=== PATIENT | female | born 1995 | race Caucasian/White ===

== ENCOUNTER → 2016-06-23 | Outpatient (CLI) | payer MEDICAID, OTHER ==
[~2016-06-23] MED LIST: BCP; DOCU-143 PO; FERR-84 PO; IBUP-1773 PO; OXYC-197 PO; PROP80CA4 PO
== END ==
LOC: LAB 08:57
PROVIDERS: ATTEND Obstetrics & Gynecology
DX: Z34.82 Encounter for supervision of other normal pregnancy, second trimester (principal); Z36 Encounter for antenatal screening of mother
CPT/HCPCS: 36415; 82951; 82952

== ENCOUNTER 2016-09-16 15:13 | Outpatient (CLI) | payer OTHER, MEDICAID ==
[~2016-09-16] VITALS: Ht 160 cm; Wt 65.8 kg
[~2016-09-16 15:13] MED LIST changes: -DOCU-143 PO; -FERR-84 PO; -IBUP-1773 PO; -OXYC-197 PO
[2016-09-16 15:18] VITALS: BP 115/69
[2016-09-16] MEDS ORDERED: FERR-84 PO (15:39)
[2016-09-16 15:42] LABS: BILIRUBIN,URINE NEGATIVE (NEGATIVE); KETONES,URINE 3+ (NEGATIVE); LEUKOCYTE ESTERASE ,URINE NEGATIVE (NEGATIVE); NITRITE,URINE NEGATIVE (NEGATIVE); PH,URINE 6 (5-9); PROTEIN,URINE NEGATIVE (NEGATIVE); UROBILINOGEN,URINE NORMAL (NORMAL)
--- NOTE | 2016-09-17 10:38 | Physician Query-Final Dx ---
MAYRA RAMSEY 09/17/16 1038: Clinic Account Progress/Dx Physician Query: Please give diagnosis Date of Service Sep 16, 2016 at 15:13 FRACISCO RUBIN MD 09/17/16 1502: Clinic Account Progress/Dx DIAGNOSIS: Diagnosis Contractions in third trimester, false labor MAYRA RAMSEY Sep 17, 2016 10:38 FRACISCO RUBIN MD Sep 17, 2016 15:02
== END 2016-09-16 16:35 | disposition home or self-care (01) ==
LOC: LDRP 15:13 → WSo 15:13
PROVIDERS: ATTEND Obstetrics & Gynecology
DX: O47.1 False labor at or after 37 completed weeks of gestation (principal); Z3A.39 39 weeks gestation of pregnancy
CPT/HCPCS: 81000; 99213

== ENCOUNTER 2016-09-17 20:00 | Inpatient (IN) | payer OTHER, MEDICAID ==
[~2016-09-17] VITALS: Ht 160 cm; Wt 66.7 kg
[~2016-09-17 20:00] MED LIST changes: +FERR-84 PO
[2016-09-17 22:15] VITALS: BP 108/55
[2016-09-17] MEDS ORDERED: LACTATED RINGERS 1,000 ML IV ONE (22:19)
[2016-09-17] MEDS ORDERED: MINERAL OIL CONCENTRATE 99.9% 15 ML UDC TOP PRN (22:30)
[2016-09-17] MEDS: LACTATED RINGERS 1,000 ML IV SCH (22:35)
[2016-09-17 22:54] LABS: BASOPHILS % (AUTO) 0 % (0-10); EOSINOPHILS # (AUTO) 0.1 10^3/uL (0.0-0.3); EOSINOPHILS % (AUTO) 1 % (0-10); LYMPHOCYTES # (AUTO) 1.3 X 10^3 (1.0-4.0); LYMPHOCYTES % (AUTO) 17 % (12-44); MEAN CORPUSCULAR HEMOGLOBIN 32 PG (25-34); MEAN CORPUSCULAR HGB CONC 34 G/DL (32-36); MEAN CORPUSCULAR VOLUME 94 FL (80-99); MEAN PLATELET VOLUME 11.5 FL (7.4-10.4); MONOCYTES # (AUTO) 0.9 X 10^3 (0.0-1.0); MONOCYTES % (AUTO) 11 % (0-12); NEUTROPHILS # (AUTO) 5.7 X 10^3 (1.8-7.8); NEUTROPHILS % (AUTO) 71 % (42-75); PLATELET COUNT 187 10^3/uL (130-400); RED BLOOD COUNT 3.42 10^6/uL (4.35-5.85); RED CELL DISTRIBUTION WIDTH 13.8 % (10.0-14.5); WHITE BLOOD COUNT 7.9 10^3/uL (4.3-11.0)
[2016-09-17] MEDS: MISOPROSTOL 100 MCG (CYTOTEC) TAB PV SCH (23:17)
[2016-09-17] MEDS: D5 LR IV SOLUTION 1,000 ML IV SCH (23:48)
[2016-09-18] VITALS (54 sets, daily range): BP systolic 110–145; BP diastolic 56–83
[2016-09-18] MEDS: MISOPROSTOL 100 MCG (CYTOTEC) TAB PV SCH (03:27)
[2016-09-18] MEDS ORDERED: CATHETER FLUSH 10 ML SYR IV SCH ×2 (06:00→22:00)
[2016-09-18] MEDS ORDERED: OXYTOCIN/NORMAL SALINE 500 ML IV SCH ×3 (06:27→19:27)
[2016-09-18] MEDS: D5 LR IV SOLUTION 1,000 ML IV SCH ×2 (07:22→15:17)
[2016-09-18] MEDS ORDERED: SUFENTA 0.6MCG/ML BUPIVA 0.125 100 ML ONE (08:22)
--- NOTE | 2016-09-18 08:41 | History & Physical-OB ---
OB - Chief Complaint & HPI Date Date of Admission: Date of Admission: Sep 17, 2016 at 22:10 Chief Complaint/History OB-Reason for Admission/Chief: Induction of Labor Hx : 1 Hx Para: 0 Expected Date of Delivery: Sep 23, 2016 Gestational Age in Weeks: 39 Gestational Age in Days: 2 Indication for induction: other (elective) Other reason for admission: Joshua is a 20 y/o G1 @ 39w2d here for elective IOL Denies complaints Fetus active, no LOF VB CTX prior to admission c/b Rh D neg status, h/o chlamydia in 2010 (neg this ), elevated 1 hr GCT with normal 3 hr GTT, anemia (taking iron) Peds Dr. Pruett History of Labs O neg Antibody neg RI Hep B neg RPR NR HIV neg Hep C neg GC/CT neg/neg Hgb 10.4 at 24-28 wk labs TSH normal GBS neg Allergies and Home Medications Allergies Uncoded Allergies: Codeine (Adverse Reaction, Mild, redness, 04/06/12) Home Medications Ferrous Sulfate 325 Mg Tablet, 325 MG PO DAILY, (Reported) OB - History Hx of Present Care: Yes Ultrasounds: Normal mid trimester US Obstetrical Complications: Other (anemia, Rh D neg) Medical Complications: Other (h/o chlamydia) Information Induced Hypertension: No Maternal Gestational Diabetes: No Hemorrhage: No Obstetrical History Hx : 1 Hx Para: 0 Delivery History Adverse Rxn to Tranfusion: No Patient Past Medical History see above Social History/Family History HIV/AIDS: No Recent Infectious Disease Expo: No Sexually Transmitted Disease: Yes (CHLAMYDIA) Alcohol Use: Denies Use Recreational Drug Use: No Smoking Cessation: Former smoker Immunizations Hepatitis A: No Hepatitis B: No Tetanus Booster (TDap): Less than 5yrs (Jun 2015) Rubella: immune RPR/VDRL: Negative GBS Status: Negative HBsAG: Negative OB - Admission Exam Physical Exam Vitals: Vital Signs 09/18/16 09/18/16 07:30 07:45 Temp 98.6 Pulse 75 Resp 18 B/P (MAP) 122/72 O2 Delivery Room Air HEENT: NCAT Heart: Rhythm Normal Lungs: Clear Abdomen: Gravid Extremities: Normal Reflexes: Normal Cervical Dilatation: 3cm Effacement: 75% Station: -2 Membranes: Ruptured Amniotic Fluid: Thin Meconium Heart Rate: 140's Accelerations: Accelerations Present Decelerations: No Decelerations Short Term Variability: Present Manager Internal Variability: Average (6-25) Contractions on Admission: < 5 Minutes Apart Dodge Scoring Tool (Modified) Dilation (cm): 3-4cm (2) Effacement (%): 51-79% (2) Descent/Station: -2 (1) Cervix Consistency: Soft (2) Cervix Position: Anterior (2) Subtract 1 point for: Nulliparity (-1) Dodge Score: 8 Labs Laboratory Tests Test 09/17/16 22:35 Range/Units White Blood Count 7.9 4.3-11.0 10^3/uL Red Blood Count 3.42 L 4.35-5.85 10^6/uL Hemoglobin 10.9 L 11.5-16.0 G/DL Hematocrit 32 L 35-52 % Mean Corpuscular Volume 94 80-99 FL Mean Corpuscular Hemoglobin 32 25-34 PG Mean Corpuscular Hemoglobin Concent 34 32-36 G/DL Red Cell Distribution Width 13.8 10.0-14.5 % Platelet Count 187 130-400 10^3/uL Mean Platelet Volume 11.5 H 7.4-10.4 FL Neutrophils (%) (Auto) 71 42-75 % Lymphocytes (%) (Auto) 17 12-44 % Monocytes (%) (Auto) 11 0-12 % Eosinophils (%) (Auto) 1 0-10 % Basophils (%) (Auto) 0 0-10 % Neutrophils # (Auto) 5.7 1.8-7.8 X 10^3 Lymphocytes # (Auto) 1.3 1.0-4.0 X 10^3 Monocytes # (Auto) 0.9 0.0-1.0 X 10^3 Eosinophils # (Auto) 0.1 0.0-0.3 10^3/uL Basophils # (Auto) 0.0 0.0-0.1 10^3/uL OB - Assessment/Plan/Diagnosis Plan Plan: Induction Induction Method: per Pitocin Protocol Other Plan 20 y/o G1 @ 39w2d here for elective IOL GBS neg H/o chlamydia (remote, negative this ) Rh neg s/p RhoGAM Anemia on iron RI S/p 2 doses of cytotec overnight. Pitocin for induction currently, at 4mU. S/ p AROM this AM. Thin meconium - Dr. Pruett aware ASVD Anti-D immune globulin if baby Rh D pos FRACISCO RUBIN MD Sep 18, 2016 08:41
[2016-09-18] MEDS ORDERED: fentaNYL INJECTION 100 MCG/2 ML AMP ONE ×2 (08:48→18:04)
[2016-09-18] MEDS ORDERED: LIDOCAINE PF 2% 10 ML (XYLOCAINE) AMP ONE (08:48)
[2016-09-18] MEDS ORDERED: BUPIVACAINE 0.25% 30 ML (SENSORCAINE) VIAL ONE (08:48)
[2016-09-18] MEDS ORDERED: LACTATED RINGERS 1,000 ML IV ONE (09:54)
[2016-09-18] MEDS ORDERED: NALOXONE 0.4 MG/ML 1 ML (NARCAN) VIAL IV PRN (10:00)
[2016-09-18] MEDS ORDERED: ONDANSETRON 4 MG/2 ML (SDV) Z0FRAN IV PRN (10:00)
[2016-09-18] MEDS ORDERED: EPIDURAL (SUFENTA 0.6MCG/ML BUPIVA 0.125%) 100 ML BAG EPI SCH (10:00)
[2016-09-18] MEDS ORDERED: fentaNYL INJECTION 100 MCG/2 ML AMP INJ ONE (10:00)
[2016-09-18] MEDS ORDERED: diphenhydrAMINE 50 MG/ML INJ (BENADRYL) IV PRN (10:00)
[2016-09-18] MEDS ORDERED: LIDOCAINE PF 2% 10 ML (XYLOCAINE) AMP INJ ONE (10:00)
[2016-09-18] MEDS ORDERED: CATHETER FLUSH 10 ML SYR IV PRN (10:00)
[2016-09-18] MEDS ORDERED: BUPIVACAINE 0.25% 30 ML (SENSORCAINE) VIAL INJ ONE (10:00)
--- NOTE | 2016-09-18 16:59 | Progress Note-Standard ---
Standard Progress Note Progress Notes/Assess & Plan Date Seen 09/18/16 Assess & Plan/Chief Complaint Update Note Pt comfortable with epidural other than window on right Vital Sign - Last 12Hours 09/18/16 09/18/16 09/18/16 09/18/16 07:30 07:45 08:00 08:15 Temp 98.6 Pulse 76 75 73 93 Resp 18 18 18 18 B/P (MAP) 120/75 122/72 127/67 145/75 O2 Delivery Room Air Room Air Room Air Room Air 09/18/16 09/18/16 09/18/16 09/18/16 08:30 08:45 09:00 09:05 Pulse 95 81 78 100 Resp 18 18 18 18 B/P (MAP) 132/82 126/80 131/71 141/77 Pulse Ox 100 O2 Delivery Room Air Room Air Room Air Room Air 09/18/16 09/18/16 09/18/16 09/18/16 09:10 09:15 09:20 09:25 Pulse 91 84 78 Resp 18 18 18 18 B/P (MAP) 143/75 125/72 130/80 118/65 Pulse Ox 100 100 100 100 O2 Delivery Room Air Room Air Room Air Room Air 09/18/16 09/18/16 09/18/16 09/18/16 09:30 09:35 09:40 09:45 Pulse 73 72 81 75 Resp 18 18 18 18 B/P (MAP) 126/64 121/66 132/65 124/70 Pulse Ox 100 100 100 100 O2 Delivery Room Air Room Air Room Air Room Air 09/18/16 09/18/16 09/18/16 09/18/16 09:50 09:55 10:00 10:10 Pulse 90 72 78 77 Resp 18 18 18 18 B/P (MAP) 126/58 123/69 132/68 123/69 Pulse Ox 100 100 100 100 O2 Delivery Room Air Room Air Room Air Room Air 09/18/16 09/18/16 09/18/16 09/18/16 10:15 10:20 10:25 10:30 Pulse 74 70 64 73 Resp 18 18 18 18 B/P (MAP) 119/67 122/68 121/74 124/74 Pulse Ox 100 100 100 100 O2 Delivery Room Air Room Air Room Air Room Air 09/18/16 09/18/16 09/18/1617 10:45 11:00 11:15 11:30 Pulse 68 74 118 82 Resp 18 18 18 18 B/P (MAP) 117/73 122/73 130/74 126/77 Pulse Ox 100 100 100 100 O2 Delivery Room Air Room Air Room Air Room Air 09/18/16 09/18/16 09/18/16 09/18/16 11:45 11:49 12:00 12:15 Temp 98.1 Pulse 85 77 Resp 18 18 18 B/P (MAP) 126/82 127/78 O2 Delivery Room Air Room Air Room Air 09/18/16 09/18/16 09/18/16 09/18/16 12:30 12:45 13:00 13:15 Pulse 75 78 85 81 Resp 18 18 18 18 B/P (MAP) 119/64 126/72 135/70 120/66 O2 Delivery Room Air Room Air Room Air Room Air 09/18/16 09/18/16 09/18/16 09/18/16 13:30 13:45 14:00 14:15 Pulse 83 87 83 78 Resp 18 18 18 18 B/P (MAP) 117/58 117/69 143/56 121/73 O2 Delivery Room Air Room Air Room Air Room Air 09/18/16 09/18/16 09/18/16 09/18/16 14:30 14:45 15:00 15:15 Pulse 89 88 88 88 Resp 18 18 18 18 B/P (MAP) 121/68 122/75 128/73 132/74 O2 Delivery Room Air Room Air Room Air Room Air 09/18/16 09/18/16 09/18/16 15:30 15:45 15:47 Pulse 88 87 Resp 18 18 B/P (MAP) 125/73 131/62 O2 Delivery Room Air Room Air Non Rebreather O2 Flow Rate 10.00 Intake and Output 09/18/16 00:00 Intake Total 1000 ml Balance 1000 ml SVE 4+/50/-1 (cervix palpably edematous especially on right) FHR 140/min to mod jose armando/reactive, +accels with scalp stim, variable decelerations with occasional ctx TOCO 3-4/10, palpably moderate to firm A/P 20 y/o G1 @ 39w2d with IOL, GBS neg, now with arrest of active phase of labor GBS neg Rh D neg Discussed options with pt. Will continue pitocin. I do suspect asynclitism which has been unresolved despite multiple attempts at position changes (lateral , knee chest etc). We have talked at length about how an elective IOL can lead to CD unfortunately. She would like to wait 30 more minutes and as status is reassuring, will allow this and likely proceed with CD if no change. I discussed I am especially worried about the edematous quality of the cervix ( was previously 80%, now closer to 50%). Labs Laboratory Tests 09/17/16 22:35 FRACISCO RUBIN MD Sep 18, 2016 16:59
[2016-09-18] MEDS ORDERED: FAMOTIDINE 20MG/2ML IV (PEPCID) ONE (17:07)
[2016-09-18] MEDS ORDERED: CITRIC ACID/SOB CIT (BICITRA) 30 ML UDC ONE (17:07)
[2016-09-18] MEDS ORDERED: METOCLOPRAMIDE INJ 10 MG/2 ML (REGLAN) ONE (17:07)
[2016-09-18] MEDS: LACTATED RINGERS 1,000 ML IV SCH (17:26)
[2016-09-18] MEDS ORDERED: ceFAZolin 1,000 MG (ANCEF) VIAL ONE (17:35)
[2016-09-18] MEDS ORDERED: NS (IVPB) 50 ML ONE (17:36)
--- NOTE | 2016-09-18 17:37 | Cesarean Section Operative ---
Procedure Procedure Note Date of Procedure: September 18, 2016 Pre-operative Diagnosis: Joshua Garza is a 20 y/o G1 @ 39w2d with arrest of active phase of labor following failed induction of labor, GBS neg Post-operative Diagnosis: Same Procedure: Primary low transverse section Physician: Praveena Hayden MD Estimated blood loss: 600 mL Disposition: Recovery room, stable Findings: Viable female infant, Apgars 2/9, weight 6lb6oz, intact placenta, 3vc, normal appearing uterus, tubes, and ovaries. Indications: Joshua Garza is a 20 y/o G1 @ 39w2d who presented for elective IOL. She underwent cervical ripening with cytotec. Pitocin was started per protocol and AROM occurred with clear fluid. She progressed to 4.5-5cm with edematous cervix. The heart rate tracing was a persistent category 2 tracing. Multiple position changes were employed but over 5.5 hours the cervix did not change and became more edematous. She was counseled on further management and a delivery was recommended. Procedure Details: The patient was seen in pre-op and the procedure was discussed with the patient in full, including the risks, benefits, and alternatives. All questions were answered. The patient was taken to the operating room and a time out was performed, verifying patient and procedure. After spinal anesthesia was placed by our anesthesia colleagues, the patient was placed in the dorsal supine with leftward tilt for uterine displacement.~ Her abdomen was then prepped and draped in the typical sterile fashion. A Pfannenstiel skin incision was made using a scalpel and carried down through the underlying fascia. The fascia was incised in the midline and tented up using Catrachito clamps. On both the inferior and superior fascia side the rectus muscle was dissected off bluntly and sharply using Sue scissors. The peritoneum was identified and entered bluntly in the midline. This was then stretched laterally using manual strength. After entering the abdominal cavity and confirming lack of intraperitoneal adhesions, a large Sherwin retractor was placed and the lower uterine segment was visualized. A bladder flap was created with the use of Metzenbaum scissors. A scalpel was utilized to make a low transverse uterine incision. The infant's head was grasped and brought to the level of the incision. It was noted to be in a a brown presentation, mentum anterior position. The cord prolapsed through with the delivery of the head to the hysterotomy. Fundal pressure was applied and infant was noted delivered. The Silastic vacuum device was utilized. I attempted to flex the head multiple times forward to place the silastic on the vertex however the head repeatedly extended and the vacuum multiple times incorporated the forehead, although this was attempted to be avoided. Unable to affect delivery twice, I then reached into the uterus and rotated the baby 180 degrees until the fetus was in occiput anterior position. I was then able to flex the head and deliver the vertex. Mouth and nares were suctioned with bulb suction. After the umbilical cord was clamped and cut, the was handed off to the pediatric staff. A sample of cord blood was then obtained and pH was 7.37. The placenta was delivered intact via uterine massage. The uterus was cleared of all clots and debris. The uterine incision was closed using 0 Vicryl in a running locked fashion. A second imbricated layer was placed using 0 Vicryl in a running fashion as well. The uterus was flexed forward and the posterior rectouterine space was inspected and cleared of all clots and debris. Again the hysterotomy site was examined and hemostasis was observed. The bilateral tubes and ovaries appeared normal. The abdominal gutters were cleared of all clots and debris. A final check of the uterine incision showed it to be hemostatic. Intercede was placed on the hysterotomy. The fascia was closed with 0 Vicryl in a running fashion. The subcutaneous space was hemostatic, and irrigated. The subcutaneous space was closed with 3-0 Vicryl in several single interrupted stitches. The skin was then closed using 4-0 Monocryl in a running subcuticular fashion. The skin edges were reapproximated together and were hemostatic. A pressure dressing was applied. All sponge, lap and needle counts were correct at the end of the procedure per nursing. Vitals - Labs Vital Signs - I&O Vital Signs Date Time Temp Pulse Resp B/P (MAP) Pulse Ox O2 Delivery O2 Flow Rate FiO2 09/18/16 16:40 99.3 09/18/16 16:30 90 18 125/75 Room Air 09/18/16 16:15 83 18 122/73 Room Air 09/18/16 16:00 76 18 122/67 Room Air 09/18/16 15:47 Non Rebreather 10.00 09/18/16 15:45 87 18 131/62 Room Air 09/18/16 15:30 88 18 125/73 Room Air 09/18/16 15:15 88 18 132/74 Room Air 09/18/16 15:00 88 18 128/73 Room Air 09/18/16 14:45 88 18 122/75 Room Air 09/18/16 14:30 89 18 121/68 Room Air 09/18/16 14:15 78 18 121/73 Room Air 09/18/16 14:00 83 18 143/56 Room Air 09/18/16 13:45 87 18 117/69 Room Air 09/18/16 13:30 83 18 117/58 Room Air 09/18/16 13:15 81 18 120/66 Room Air 09/18/16 13:00 85 18 135/70 Room Air 09/18/16 12:45 78 18 126/72 Room Air 09/18/16 12:30 75 18 119/64 Room Air 09/18/16 12:15 77 18 127/78 Room Air 09/18/16 12:00 85 18 126/82 Room Air 09/18/16 11:49 98.1 09/18/16 11:45 18 Room Air 09/18/16 11:30 82 18 126/77 100 Room Air 09/18/16 11:15 118 18 130/74 100 Room Air 09/18/16 11:00 74 18 122/73 100 Room Air 09/18/16 10:45 68 18 117/73 100 Room Air 09/18/16 10:30 73 18 124/74 100 Room Air 09/18/16 10:25 64 18 121/74 100 Room Air 09/18/16 10:20 70 18 122/68 100 Room Air 09/18/16 10:15 74 18 119/67 100 Room Air 09/18/16 10:10 77 18 123/69 100 Room Air 09/18/16 10:00 78 18 132/68 100 Room Air 09/18/16 09:55 72 18 123/69 100 Room Air 09/18/16 09:50 90 18 126/58 100 Room Air 09/18/16 09:45 75 18 124/70 100 Room Air 09/18/16 09:40 81 18 132/65 100 Room Air 09/18/16 09:35 72 18 121/66 100 Room Air 09/18/16 09:30 73 18 126/64 100 Room Air 09/18/16 09:25 78 18 118/65 100 Room Air 09/18/16 09:20 18 130/80 100 Room Air 09/18/16 09:15 84 18 125/72 100 Room Air 09/18/16 09:10 91 18 143/75 100 Room Air 09/18/16 09:05 100 18 141/77 100 Room Air 09/18/16 09:00 78 18 131/71 Room Air 09/18/16 08:45 81 18 126/80 Room Air 09/18/16 08:30 95 18 132/82 Room Air 09/18/16 08:15 93 18 145/75 Room Air 09/18/16 08:00 73 18 127/67 Room Air 09/18/16 07:45 75 18 122/72 Room Air 09/18/16 07:30 98.6 76 18 120/75 Room Air 09/18/16 03:27 99.0 69 18 110/62 Room Air 09/17/16 22:15 99.2 72 18 108/55 Room Air I & O 09/18/16 07:00 Intake Total 1000 ml Balance 1000 ml Labs Laboratory Tests 09/17/16 22:35: White Blood Count 7.9, Red Blood Count 3.42L, Hemoglobin 10.9L, Hematocrit 32L, Mean Corpuscular Volume 94, Mean Corpuscular Hemoglobin 32, Mean Corpuscular Hemoglobin Concent 34, Red Cell Distribution Width 13.8, Platelet Count 187, Mean Platelet Volume 11.5H, Neutrophils (%) (Auto) 71, Lymphocytes (%) (Auto) 17 , Monocytes (%) (Auto) 11, Eosinophils (%) (Auto) 1, Basophils (%) (Auto) 0, Neutrophils # (Auto) 5.7, Lymphocytes # (Auto) 1.3, Monocytes # (Auto) 0.9, Eosinophils # (Auto) 0.1, Basophils # (Auto) 0.0 PRAVEENA HAYDEN MD Sep 18, 2016 17:37
[2016-09-18] MEDS ORDERED: DOCU-143 PO (17:39)
[2016-09-18] MEDS ORDERED: IBUP-1773 PO (17:39)
[2016-09-18] MEDS ORDERED: OXYC-197 PO (17:39)
--- NOTE | 2016-09-18 17:40 | Discharge Inst-Women's Service ---
Discharge Inst-Women's Serv Depart Medication/Instructions New, Converted or Re-Newed RX: RX on Chart Final Diagnosis Arrest of active phase of labor, primary low transverse CD Consults/Follow Up Additional Follow Up: Yes Orders/Referrals 1-[address] Hayden for incision check [address] Hayden for visit Activity Driving Instructions: No Driving for 24 Hours (or while taking narcotic pain medications) NO SMOKING: NO SMOKING Nothing Inside Vagina: No Douching, No Yonah, No Tampons Other Activity No strenuous activity, no lifting > 10lb until cleared by Dr. Hayden Diet Discharge Diet: No Restrictions Symptoms to Report to DrGrace: Bleeding Excessive, Pain Increased, Fever Over 101 Degrees F, Pain/Pressure in Chest, Vaginal Bleeding Increase, Dizziness/Fainting , Nausea/Vomiting, Shortness of Breath For Any Problems or Questions: Contact Your Physician, Go to Emergency Room Skin/Wound Care Infection Signs and Symptoms: Increased Redness, Foul Odor of Wound, Increased Drainage Operative Area Clean and Dry: Keep Incision Clean/Dry Stitches/Giancarlo/Dermabond: Dermabond, Care of Stitches FRACISCO HAYDEN MD Sep 18, 2016 17:40
[2016-09-18] MEDS ORDERED: METOCLOPRAMIDE INJ 10 MG/2 ML (REGLAN) IV NR (17:45)
[2016-09-18] MEDS ORDERED: FAMOTIDINE 20MG/2ML IV (PEPCID) IV NR (17:45)
[2016-09-18] MEDS ORDERED: CITRIC ACID/SOB CIT (BICITRA) 30 ML UDC PO NR (17:45)
[2016-09-18] MEDS ORDERED: KETAMINE HCL 100 MG/ML 5 ML VIAL ONE (17:53)
[2016-09-18] MEDS ORDERED: KETOROLAC 30 MG/ML VIAL ONE (18:36)
[2016-09-18] MEDS ORDERED: ONDANSETRON 4 MG/2 ML (SDV) Z0FRAN ONE (18:36)
[2016-09-18] MEDS ORDERED: OXYTOCIN/NORMAL SALINE 1,000 ML IV ONE (18:36)
[2016-09-18] MEDS ORDERED: DOCUSATE SODIUM 100 MG (COLACE) CAP PO PRN (19:30)
[2016-09-18] MEDS ORDERED: MEASLES,MUMPS,RUBELLA 1 EA INJ SC SCH (19:30)
[2016-09-18] MEDS ORDERED: oxyCODONE/APAP 5/325MG (PERCOCET 5) TABLET PO PRN (19:30)
[2016-09-18] MEDS ORDERED: IBUPROFEN 600 MG (MOTRIN) TAB PO PRN (19:30)
[2016-09-18] MEDS ORDERED: morphine INJ 4 MG/ML 1 ML (VIAL/SYRINGE) IVP PRN (19:30)
--- NOTE | 2016-09-18 19:47 | Newborn Infant H&P-Admission ---
Infant Record Exam Date & Time Date seen by provider: Sep 18, 2016 Time seen by provider: 19:00 Provider PCP Pedrito Amaya MD Delivery Assessment Expected Date of Delivery: Sep 23, 2016 Hx : 1 Hx Para: 0 Gestational Age in Weeks: 39 Gestational Age in Days: 2 Amniotic Membrane Rupture Time: 08 Delivery Date: Sep 18, 2016 Delivery Time: 18:28 Condition of Infant: Living Infant Delivery Method: Primary Section Operative Indications (Cesarea: Failure to Progress Events: Routine care Intrapartal Events: None Gender: Female Viability: Living Mother's Group Strep Mother's Group B Strep: Negative Maternal Labs Blood Type: O neg, antibody neg HIV: neg Hep B: Negative Rubella: Immune Score Score at 1 Minute: 2 Score at 5 Minutes: 9 Condition/Feeding Benefits of discussed with mother. [place] Feeding Method: Breast Milk-Exclusive Gestation: Single Admission Examination Level of Alertness: Alert Activity/State: Active Alert Suckling: Suckled w Encouragement Skin: Bruising Skin Comments: large bruising over the left side of forehead and left side of scalp Fontanelles: Soft, Flat Anterior [place] Descriptio: WNL Sclera Description: Clear, No Drainage Red Reflex of the Eyes: Present bilaterally Ears: Normal Mouth, Nose, Eyes: Hard & Soft Palate Intact, No Cleft Nares, No Cleft Palate Neck: Head Mobile Cardiovascular: Regular Rhythm, No Murmur Respiratory: Regular, No Retractions Breath Sounds: Clear, No Wheezes Abdomen: Soft Genitalia: Appear Normal Back: Spine Closed, Gluteal Folds Equal, Anus Patent, No Sacral Dimple Hips: WNL Movement: Symmetric-Body Muscle Tone: Active Extremities: 5 digits present on each extremity Reflexes: Jan, Grasp-Bilateral Weight/Height Weight: 6#6 Height (Inches): 3.00 Height (Calculated Centimeters: 160.521729 Weight (Pounds): 147 Weight (Ounces): 2.0 Weight (Calculated Kilograms): 66.294414 Weight (Calculated Grams): 79779.78 Vital Signs Vital Signs Date Time Temp Pulse Resp B/P (MAP) Pulse Ox O2 Delivery O2 Flow Rate FiO2 09/18/16 17:45 100 20 130/79 Room Air 09/18/16 17:30 88 20 133/74 Room Air 09/18/16 17:15 95 18 138/79 Room Air 09/18/16 17:00 105 18 133/79 Room Air 09/18/16 16:45 91 18 136/83 Room Air 09/18/16 16:40 99.3 09/18/16 16:30 90 18 125/75 Room Air 09/18/16 16:15 83 18 122/73 Room Air 09/18/16 16:00 76 18 122/67 Room Air 09/18/16 15:47 Non Rebreather 10.00 09/18/16 15:45 87 18 131/62 Room Air 09/18/16 15:30 88 18 125/73 Room Air 09/18/16 15:15 88 18 132/74 Room Air 09/18/16 15:00 88 18 128/73 Room Air 09/18/16 14:45 88 18 122/75 Room Air 09/18/16 14:30 89 18 121/68 Room Air 09/18/16 14:15 78 18 121/73 Room Air 09/18/16 14:00 83 18 143/56 Room Air 09/18/16 13:45 87 18 117/69 Room Air 09/18/16 13:30 83 18 117/58 Room Air 09/18/16 13:15 81 18 120/66 Room Air 09/18/16 13:00 85 18 135/70 Room Air 09/18/16 12:45 78 18 126/72 Room Air 09/18/16 12:30 75 18 119/64 Room Air 09/18/16 12:15 77 18 127/78 Room Air 09/18/16 12:00 85 18 126/82 Room Air 09/18/16 11:49 98.1 09/18/16 11:45 18 Room Air 09/18/16 11:30 82 18 126/77 100 Room Air 09/18/16 11:15 118 18 130/74 100 Room Air 09/18/16 11:00 74 18 122/73 100 Room Air 09/18/16 10:45 68 18 117/73 100 Room Air 09/18/16 10:30 73 18 124/74 100 Room Air 09/18/16 10:25 64 18 121/74 100 Room Air 09/18/16 10:20 70 18 122/68 100 Room Air 09/18/16 10:15 74 18 119/67 100 Room Air 09/18/16 10:10 77 18 123/69 100 Room Air 09/18/16 10:00 78 18 132/68 100 Room Air 09/18/16 09:55 72 18 123/69 100 Room Air 09/18/16 09:50 90 18 126/58 100 Room Air 09/18/16 09:45 75 18 124/70 100 Room Air 09/18/16 09:40 81 18 132/65 100 Room Air 09/18/16 09:35 72 18 121/66 100 Room Air 09/18/16 09:30 73 18 126/64 100 Room Air 09/18/16 09:25 78 18 118/65 100 Room Air 09/18/16 09:20 18 130/80 100 Room Air 09/18/16 09:15 84 18 125/72 100 Room Air 09/18/16 09:10 91 18 143/75 100 Room Air 09/18/16 09:05 100 18 141/77 100 Room Air 09/18/16 09:00 78 18 131/71 Room Air 09/18/16 08:45 81 18 126/80 Room Air 09/18/16 08:30 95 18 132/82 Room Air 09/18/16 08:15 93 18 145/75 Room Air 09/18/16 08:00 73 18 127/67 Room Air 09/18/16 07:45 75 18 122/72 Room Air 09/18/16 07:30 98.6 76 18 120/75 Room Air 09/18/16 03:27 99.0 69 18 110/62 Room Air 09/17/16 22:15 99.2 72 18 108/55 Room Air Laboratory Tests 09/17/16 22:35: White Blood Count 7.9, Red Blood Count 3.42L, Hemoglobin 10.9L, Hematocrit 32L, Mean Corpuscular Volume 94, Mean Corpuscular Hemoglobin 32, Mean Corpuscular Hemoglobin Concent 34, Red Cell Distribution Width 13.8, Platelet Count 187, Mean Platelet Volume 11.5H, Neutrophils (%) (Auto) 71, Lymphocytes (%) (Auto) 17 , Monocytes (%) (Auto) 11, Eosinophils (%) (Auto) 1, Basophils (%) (Auto) 0, Neutrophils # (Auto) 5.7, Lymphocytes # (Auto) 1.3, Monocytes # (Auto) 0.9, Eosinophils # (Auto) 0.1, Basophils # (Auto) 0.0 Impression on Admission Impression on Admission: , , Living, Term Baby Girl "Joaquin Garza is a 39 2/7 wga term AGA female born to a 22 year old G1 now P1 mother by due to failure to progress and thin meconium. Baby had APGARs of 2/9. Baby required PPV for about 1 minute after and then turned around and responded well. Now awake and acting normal. Mom is Rh neg. Progress/Plan/Problem List Progress/Plan 1. Admit to nursery 2. Routine care 3. Blood sugar protocol due to traumatic 4. Will monitor for jaundice due to large hematoma on scalp 5. Baby appears a little tongue tied. Will need to monitor feeding 6. Will f/u with Dr. Amaya as an outpatient PEDRITO AMAYA MD Sep 18, 2016 19:47
[2016-09-18] MEDS: DOCUSATE SODIUM 100 MG (COLACE) CAP PO SCH (21:15)
[2016-09-18] MEDS: oxyCODONE/APAP 5/325MG (PERCOCET 5) TABLET PO PRN (21:15)
[2016-09-19 00:40] VITALS: BP 118/64
[2016-09-19] MEDS: KETOROLAC 30 MG/ML VIAL IVP SCH ×2 (01:02→07:04)
[2016-09-19] MEDS: oxyCODONE/APAP 5/325MG (PERCOCET 5) TABLET PO PRN ×4 (01:49→20:27)
[2016-09-19 04:45] VITALS: BP 101/60
[2016-09-19 06:59] LABS: BASOPHILS % (AUTO) 0 % (0-10); EOSINOPHILS # (AUTO) 0.1 10^3/uL (0.0-0.3); EOSINOPHILS % (AUTO) 1 % (0-10); LYMPHOCYTES # (AUTO) 1.1 X 10^3 (1.0-4.0); LYMPHOCYTES % (AUTO) 9 % (12-44); MEAN CORPUSCULAR HEMOGLOBIN 32 PG (25-34); MEAN CORPUSCULAR HGB CONC 34 G/DL (32-36); MEAN CORPUSCULAR VOLUME 95 FL (80-99); MEAN PLATELET VOLUME 11.4 FL (7.4-10.4); MONOCYTES # (AUTO) 0.8 X 10^3 (0.0-1.0); MONOCYTES % (AUTO) 7 % (0-12); NEUTROPHILS # (AUTO) 9.8 X 10^3 (1.8-7.8); NEUTROPHILS % (AUTO) 83 % (42-75); PLATELET COUNT 148 10^3/uL (130-400); RED BLOOD COUNT 3.07 10^6/uL (4.35-5.85); RED CELL DISTRIBUTION WIDTH 13.8 % (10.0-14.5); WHITE BLOOD COUNT 11.8 10^3/uL (4.3-11.0)
[2016-09-19] MEDS ORDERED: FERROUS SULF 325 MG (IRON) TAB PO SCH (07:00)
[2016-09-19] MEDS: DOCUSATE SODIUM 100 MG (COLACE) CAP PO SCH ×2 (08:42→20:27)
[2016-09-19 08:45] VITALS: BP 102/52
--- NOTE | 2016-09-19 09:00 | Postpartum Progress Note ---
Post Op Post-operative Day #1 Subjective: Patient is without complaints. Ambulating, voiding after martinez removed. Tolerating a regular diet without nausea or vomiting. Normal lochia. Pain is well controlled with oral pain medications. Passing flatus. Breast feeding. Objective: VS - Last 72 Hours, by Label 09/17/16 09/18/16 09/18/16 09/18/16 22:15 03:27 07:30 07:45 Temp 99.2 99.0 98.6 Pulse 72 69 76 75 Resp 18 18 18 18 B/P (MAP) 108/55 110/62 120/75 122/72 O2 Delivery Room Air Room Air Room Air Room Air 09/18/16 09/18/16 09/18/16 09/18/16 08:00 08:15 08:30 08:45 Pulse 73 93 95 81 Resp 18 18 18 18 B/P (MAP) 127/67 145/75 132/82 126/80 O2 Delivery Room Air Room Air Room Air Room Air 09/18/16 09/18/16 09/18/16 09/18/16 09:00 09:05 09:10 09:15 Pulse 78 100 91 84 Resp 18 18 18 18 B/P (MAP) 131/71 141/77 143/75 125/72 Pulse Ox 100 100 100 O2 Delivery Room Air Room Air Room Air Room Air 09/18/16 09/18/16 09/18/16 09/18/16 09:20 09:25 09:30 09:35 Pulse 78 73 72 Resp 18 18 18 18 B/P (MAP) 130/80 118/65 126/64 121/66 Pulse Ox 100 100 100 100 O2 Delivery Room Air Room Air Room Air Room Air 09/18/16 09/18/16 09/18/16 09/18/16 09:40 09:45 09:50 09:55 Pulse 81 75 90 72 Resp 18 18 18 18 B/P (MAP) 132/65 124/70 126/58 123/69 Pulse Ox 100 100 100 100 O2 Delivery Room Air Room Air Room Air Room Air 09/18/16 09/18/16 09/18/16 09/18/16 10:00 10:10 10:15 10:20 Pulse 78 77 74 70 Resp 18 18 18 18 B/P (MAP) 132/68 123/69 119/67 122/68 Pulse Ox 100 100 100 100 O2 Delivery Room Air Room Air Room Air Room Air 09/18/16 09/18/16 09/18/16 09/18/16 10:25 10:30 10:45 11:00 Pulse 64 73 68 74 Resp 18 18 18 18 B/P (MAP) 121/74 124/74 117/73 122/73 Pulse Ox 100 100 100 100 O2 Delivery Room Air Room Air Room Air Room Air 09/18/16 09/18/16 09/18/16 09/18/16 11:15 11:30 11:45 11:49 Temp 98.1 Pulse 118 82 Resp 18 18 18 B/P (MAP) 130/74 126/77 Pulse Ox 100 100 O2 Delivery Room Air Room Air Room Air 09/18/16 09/18/16 09/18/16 09/18/16 12:00 12:15 12:30 12:45 Pulse 85 77 75 78 Resp 18 18 18 18 B/P (MAP) 126/82 127/78 119/64 126/72 O2 Delivery Room Air Room Air Room Air Room Air 09/18/16 09/18/16 09/18/16 09/18/16 13:00 13:15 13:30 13:45 Pulse 85 81 83 87 Resp 18 18 18 18 B/P (MAP) 135/70 120/66 117/58 117/69 O2 Delivery Room Air Room Air Room Air Room Air 09/18/16 09/18/16 09/18/16 09/18/16 14:00 14:15 14:30 14:45 Pulse 83 78 89 88 Resp 18 18 18 18 B/P (MAP) 143/56 121/73 121/68 122/75 O2 Delivery Room Air Room Air Room Air Room Air 09/18/16 09/18/16 09/18/16 09/18/16 15:00 15:15 15:30 15:45 Pulse 88 88 88 87 Resp 18 18 18 18 B/P (MAP) 128/73 132/74 125/73 131/62 O2 Delivery Room Air Room Air Room Air Room Air 09/18/16 09/18/16 09/18/16 09/18/16 15:47 16:00 16:15 16:30 Pulse 76 83 90 Resp 18 18 18 B/P (MAP) 122/67 122/73 125/75 O2 Delivery Non Rebreather Room Air Room Air Room Air O2 Flow Rate 10.00 09/18/16 09/18/16 09/18/16 09/18/16 16:40 16:45 17:00 17:15 Temp 99.3 Pulse 91 105 95 Resp 18 18 18 B/P (MAP) 136/83 133/79 138/79 O2 Delivery Room Air Room Air Room Air 09/18/16 09/18/16 09/18/16 09/19/16 17:30 17:45 21:10 00:40 Temp 98.8 98.3 Pulse 88 100 99 74 Resp 20 20 18 18 B/P (MAP) 133/74 130/79 114/66 118/64 Pulse Ox 97 98 O2 Delivery Room Air Room Air Room Air Room Air 09/19/16 04:45 Temp 98.6 Pulse 90 Resp 18 B/P (MAP) 101/60 Pulse Ox 97 O2 Delivery Room Air Physical Exam: General - Alert and oriented, no apparent distress Abdomen - Soft, appropriately tender to palpation, non-distended, fundus firm at umbilicus Incision - clean, dry and intact; no erythema or induration, no drainage Extremities - trace bilat edema, negative Deondre's bilaterally Laboratory Tests Test 09/19/16 06:41 Range/Units White Blood Count 11.8 H 4.3-11.0 10^3/uL Red Blood Count 3.07 L 4.35-5.85 10^6/uL Hemoglobin 9.8 L 11.5-16.0 G/DL Hematocrit 29 L 35-52 % Mean Corpuscular Volume 95 80-99 FL Mean Corpuscular Hemoglobin 32 25-34 PG Mean Corpuscular Hemoglobin Concent 34 32-36 G/DL Red Cell Distribution Width 13.8 10.0-14.5 % Platelet Count 148 130-400 10^3/uL Mean Platelet Volume 11.4 H 7.4-10.4 FL Neutrophils (%) (Auto) 83 H 42-75 % Lymphocytes (%) (Auto) 9 L 12-44 % Monocytes (%) (Auto) 7 0-12 % Eosinophils (%) (Auto) 1 0-10 % Basophils (%) (Auto) 0 0-10 % Neutrophils # (Auto) 9.8 H 1.8-7.8 X 10^3 Lymphocytes # (Auto) 1.1 1.0-4.0 X 10^3 Monocytes # (Auto) 0.8 0.0-1.0 X 10^3 Eosinophils # (Auto) 0.1 0.0-0.3 10^3/uL Basophils # (Auto) 0.0 0.0-0.1 10^3/uL Assessment: 20 y/o post-operative day # 1, status post PLTCS for arrest of active phase of labor and malpresentation. Recovering well, hemodynamically stable Acute blood loss anemia on chronic anemia Hgb 9.8 Rh D neg, Rh D neg Plan: Routine post-operative care. Encourage breast feeding. Encourage ambulation. VTE prophylaxis: SCDs. Ferrous sulfate supplementation. Plan for discharge tomorrow. Vitals - Labs Vital Signs - I&O Vital Signs Date Time Temp Pulse Resp B/P (MAP) Pulse Ox O2 Delivery O2 Flow Rate FiO2 09/19/16 04:45 98.6 90 18 101/60 97 Room Air 09/19/16 00:40 98.3 74 18 118/64 98 Room Air 09/18/16 21:10 98.8 99 18 114/66 97 Room Air 09/18/16 17:45 100 20 130/79 Room Air 09/18/16 17:30 88 20 133/74 Room Air 09/18/16 17:15 95 18 138/79 Room Air 09/18/16 17:00 105 18 133/79 Room Air 09/18/16 16:45 91 18 136/83 Room Air 09/18/16 16:40 99.3 09/18/16 16:30 90 18 125/75 Room Air 09/18/16 16:15 83 18 122/73 Room Air 09/18/16 16:00 76 18 122/67 Room Air 09/18/16 15:47 Non Rebreather 10.00 09/18/16 15:45 87 18 131/62 Room Air 09/18/16 15:30 88 18 125/73 Room Air 09/18/16 15:15 88 18 132/74 Room Air 09/18/16 15:00 88 18 128/73 Room Air 09/18/16 14:45 88 18 122/75 Room Air 09/18/16 14:30 89 18 121/68 Room Air 09/18/16 14:15 78 18 121/73 Room Air 09/18/16 14:00 83 18 143/56 Room Air 09/18/16 13:45 87 18 117/69 Room Air 09/18/16 13:30 83 18 117/58 Room Air 09/18/16 13:15 81 18 120/66 Room Air 09/18/16 13:00 85 18 135/70 Room Air 09/18/16 12:45 78 18 126/72 Room Air 09/18/16 12:30 75 18 119/64 Room Air 09/18/16 12:15 77 18 127/78 Room Air 09/18/16 12:00 85 18 126/82 Room Air 09/18/16 11:49 98.1 09/18/16 11:45 18 Room Air 09/18/16 11:30 82 18 126/77 100 Room Air 09/18/16 11:15 118 18 130/74 100 Room Air 09/18/16 11:00 74 18 122/73 100 Room Air 09/18/16 10:45 68 18 117/73 100 Room Air 09/18/16 10:30 73 18 124/74 100 Room Air 09/18/16 10:25 64 18 121/74 100 Room Air 09/18/16 10:20 70 18 122/68 100 Room Air 09/18/16 10:15 74 18 119/67 100 Room Air 09/18/16 10:10 77 18 123/69 100 Room Air 09/18/16 10:00 78 18 132/68 100 Room Air 09/18/16 09:55 72 18 123/69 100 Room Air 09/18/16 09:50 90 18 126/58 100 Room Air 09/18/16 09:45 75 18 124/70 100 Room Air 09/18/16 09:40 81 18 132/65 100 Room Air 09/18/16 09:35 72 18 121/66 100 Room Air 09/18/16 09:30 73 18 126/64 100 Room Air 09/18/16 09:25 78 18 118/65 100 Room Air 09/18/16 09:20 18 130/80 100 Room Air 09/18/16 09:15 84 18 125/72 100 Room Air 09/18/16 09:10 91 18 143/75 100 Room Air 09/18/16 09:05 100 18 141/77 100 Room Air 09/18/16 09:00 78 18 131/71 Room Air I & O 09/19/16 07:00 Intake Total 4700 ml Output Total 3450 ml Balance 1250 ml Labs Laboratory Tests 09/19/16 06:41: White Blood Count 11.8H, Red Blood Count 3.07L, Hemoglobin 9.8L, Hematocrit 29L , Mean Corpuscular Volume 95, Mean Corpuscular Hemoglobin 32, Mean Corpuscular Hemoglobin Concent 34, Red Cell Distribution Width 13.8, Platelet Count 148, Mean Platelet Volume 11.4H, Neutrophils (%) (Auto) 83H, Lymphocytes (%) (Auto) 9L, Monocytes (%) (Auto) 7, Eosinophils (%) (Auto) 1, Basophils (%) (Auto) 0, Neutrophils # (Auto) 9.8H, Lymphocytes # (Auto) 1.1, Monocytes # (Auto) 0.8, Eosinophils # (Auto) 0.1, Basophils # (Auto) 0.0 FRACISCO RUBIN MD Sep 19, 2016 09:00
[2016-09-19] MEDS ORDERED: IBUPROFEN 600 MG (MOTRIN) TAB PO ONE (12:30)
[2016-09-19] MEDS: IBUPROFEN 600 MG (MOTRIN) TAB PO SCH ×3 (12:44→23:49)
--- NOTE | 2016-09-19 14:01 | Anesthesia-Regional Post-Op ---
Regional Patient Condition Mental Status: Alert, Oriented x3 Circulation: Same as Pre-Op Headache: Absent Sensation: Full Recovery Motor Block: Absent Post Op Complications Complications None Follow Up Care/Instructions Patient Instructions None needed. Anesthesia/Patient Condition Patient is doing well, no complaints, stable vital signs, no apparent adverse anesthesia problems. No complications reported per nursing. [place] [facility] [place] SWEETIE HOLDER CRNA Sep 19, 2016 14:01
[2016-09-19 14:50] VITALS: BP 112/61
[2016-09-19 19:00] VITALS: BP 110/54
[2016-09-19 23:45] VITALS: BP 105/59
[2016-09-20] MEDS: IBUPROFEN 600 MG (MOTRIN) TAB PO SCH ×2 (05:58→11:31)
[2016-09-20 05:59] VITALS: BP 101/61
--- NOTE | 2016-09-20 07:53 | Postpartum Progress Note ---
Post Op Post-operative Day #2 Subjective: Patient is without complaints. Ambulating, voiding. Tolerating a regular diet without nausea or vomiting. Normal lochia. Pain is well controlled with oral pain medications. Passing flatus. Breast feeding. Objective: VS - Last 72 Hours, by Label 09/17/16 09/18/16 09/18/16 09/18/16 22:15 03:27 07:30 07:45 Temp 99.2 99.0 98.6 Pulse 72 69 76 75 Resp 18 18 18 18 B/P (MAP) 108/55 110/62 120/75 122/72 O2 Delivery Room Air Room Air Room Air Room Air 09/18/16 09/18/16 09/18/16 09/18/16 08:00 08:15 08:30 08:45 Pulse 73 93 95 81 Resp 18 18 18 18 B/P (MAP) 127/67 145/75 132/82 126/80 O2 Delivery Room Air Room Air Room Air Room Air 09/18/16 09/18/16 09/18/16 09/18/16 09:00 09:05 09:10 09:15 Pulse 78 100 91 84 Resp 18 18 18 18 B/P (MAP) 131/71 141/77 143/75 125/72 Pulse Ox 100 100 100 O2 Delivery Room Air Room Air Room Air Room Air 09/18/16 09/18/16 09/18/16 09/18/16 09:20 09:25 09:30 09:35 Pulse 78 73 72 Resp 18 18 18 18 B/P (MAP) 130/80 118/65 126/64 121/66 Pulse Ox 100 100 100 100 O2 Delivery Room Air Room Air Room Air Room Air 09/18/16 09/18/16 09/18/16 09/18/16 09:40 09:45 09:50 09:55 Pulse 81 75 90 72 Resp 18 18 18 18 B/P (MAP) 132/65 124/70 126/58 123/69 Pulse Ox 100 100 100 100 O2 Delivery Room Air Room Air Room Air Room Air 09/18/16 09/18/16 09/18/16 09/18/16 10:00 10:10 10:15 10:20 Pulse 78 77 74 70 Resp 18 18 18 18 B/P (MAP) 132/68 123/69 119/67 122/68 Pulse Ox 100 100 100 100 O2 Delivery Room Air Room Air Room Air Room Air 09/18/16 09/18/1609/18/09/18/16 10:25 10:30 10:45 11:00 Pulse 64 73 68 74 Resp 18 18 18 18 B/P (MAP) 121/74 124/74 117/73 122/73 Pulse Ox 100 100 100 100 O2 Delivery Room Air Room Air Room Air Room Air 09/18/16 09/18/1609/18/09/18/16 11:15 11:30 11:45 11:49 Temp 98.1 Pulse 118 82 Resp 18 18 18 B/P (MAP) 130/74 126/77 Pulse Ox 100 100 O2 Delivery Room Air Room Air Room Air 09/18/16 09/18/16 09/18/16 09/18/16 12:00 12:15 12:30 12:45 Pulse 85 77 75 78 Resp 18 18 18 18 B/P (MAP) 126/82 127/78 119/64 126/72 O2 Delivery Room Air Room Air Room Air Room Air 09/18/16 09/18/16 09/18/16 09/18/16 13:00 13:15 13:30 13:45 Pulse 85 81 83 87 Resp 18 18 18 18 B/P (MAP) 135/70 120/66 117/58 117/69 O2 Delivery Room Air Room Air Room Air Room Air 09/18/16 09/18/16 09/18/16 09/18/16 14:00 14:15 14:30 14:45 Pulse 83 78 89 88 Resp 18 18 18 18 B/P (MAP) 143/56 121/73 121/68 122/75 O2 Delivery Room Air Room Air Room Air Room Air 09/18/16 09/18/16 09/18/16 09/18/16 15:00 15:15 15:30 15:45 Pulse 88 88 88 87 Resp 18 18 18 18 B/P (MAP) 128/73 132/74 125/73 131/62 O2 Delivery Room Air Room Air Room Air Room Air 09/18/1609/18/09/18/16 09/18/16 15:47 16:00 16:15 16:30 Pulse 76 83 90 Resp 18 18 18 B/P (MAP) 122/67 122/73 125/75 O2 Delivery Non Rebreather Room Air Room Air Room Air O2 Flow Rate 10.00 09/18/16 09/18/16 09/18/16 09/18/16 16:40 16:45 17:00 17:15 Temp 99.3 Pulse 91 105 95 Resp 18 18 18 B/P (MAP) 136/83 133/79 138/79 O2 Delivery Room Air Room Air Room Air 09/18/16 09/18/16 09/18/16 09/19/16 17:30 17:45 21:10 00:40 Temp 98.8 98.3 Pulse 88 100 99 74 Resp 20 20 18 18 B/P (MAP) 133/74 130/79 114/66 118/64 Pulse Ox 97 98 O2 Delivery Room Air Room Air Room Air Room Air 09/19/16 09/19/16 09/19/16 09/19/16 04:45 08:45 14:50 19:00 Temp 98.6 98.5 98.7 98.1 Pulse 90 80 87 90 Resp 18 18 18 18 B/P (MAP) 101/60 102/52 112/61 110/54 Pulse Ox 97 97 98 98 O2 Delivery Room Air Room Air Room Air Room Air 09/19/16 09/20/16 23:45 05:59 Temp 98.8 98.5 Pulse 83 84 Resp 18 18 B/P (MAP) 105/59 101/61 Pulse Ox 98 98 O2 Delivery Room Air Room Air Physical Exam: General - Alert and oriented, no apparent distress Abdomen - Soft, appropriately tender to palpation, non-distended, fundus firm at umbilicus Incision - clean, dry and intact; no erythema or induration, no drainage Extremities - no edema, negative Deondre's bilaterally no new labs 20 y/o post-operative day # 2, status post PLTCS for arrest of active phase of labor and malpresentation. Recovering well, hemodynamically stable Acute blood loss anemia on chronic anemia Hgb 9.8 Rh D neg, Rh D neg Plan: Routine post-operative care. Encourage breast feeding. Encourage ambulation. VTE prophylaxis: SCDs. Ferrous sulfate supplementation. Plan for discharge today if is able to be discharged, otherwise will keep until tomorrow. F/u with me in 1-2 weeks. Vitals - Labs Vital Signs - I&O Vital Signs Date Time Temp Pulse Resp B/P (MAP) Pulse Ox O2 Delivery O2 Flow Rate FiO2 09/20/16 05:59 98.5 84 18 101/61 98 Room Air 09/19/16 23:45 98.8 83 18 105/59 98 Room Air 09/19/16 19:00 98.1 90 18 110/54 98 Room Air 09/19/16 14:50 98.7 87 18 112/61 98 Room Air 09/19/16 08:45 98.5 80 18 102/52 97 Room Air FRACISCO RUBIN MD Sep 20, 2016 07:53
[2016-09-20] MEDS: oxyCODONE/APAP 5/325MG (PERCOCET 5) TABLET PO PRN ×2 (08:42→14:09)
[2016-09-20 11:29] VITALS: BP 102/56
[2016-09-20] MEDS: DOCUSATE SODIUM 100 MG (COLACE) CAP PO SCH (11:31)
== END 2016-09-20 17:05 | disposition home or self-care (01) | DRG 766 ==
LOC: LDRP 22:10
PROVIDERS: ADMIT Obstetrics & Gynecology; ATTEND Obstetrics & Gynecology
PROC: 3E033GC Introduction of Other Therapeutic Substance into Peripheral Vein, Percutaneous Approach (ICD-10-PCS; 2016-09-18)
PROC: 10D00Z1 Extraction of Products of Conception, Low, Open Approach (ICD-10-PCS; principal; 2016-09-18 18:00)
DX: O62.1 Secondary uterine inertia (principal); O32.3XX0 Maternal care for face, brow and chin presentation, not applicable or unspecified; O99.02 Anemia complicating childbirth; D64.9 Anemia, unspecified; Z37.0 Single live birth; Z3A.39 39 weeks gestation of pregnancy
CPT/HCPCS: 36415; 85025; 86850; 86900; 86901; 94664